=== PATIENT | female | born 1965 | race Caucasian/White ===

== ENCOUNTER 2017-09-17 08:46 | Outpatient (CLI) | payer BC ==
--- NOTE | 2017-09-17 12:06 | MMO ---
BILATERAL SCREENING MAMMOGRAM: HISTORY: Annual screening study. History of a benign left breast biopsy. COMPARISON: 11/21/2016, 10/18/2015, 10/12/2014, 10/07/2013, 10/09/2012 FINDINGS: The films are reviewed with the assistance of computer aided detection. Scattered fibroglandular change of both breasts is present. Post biopsy changes of the upper outer l eft breast are stable. Calcifications in both breasts are also unchanged. IMPRESSION: BI-RADS Category 2: Benign findings. POS: RACHELLE
== END 2017-09-17 08:47 | disposition home or self-care (01) ==
LOC: SCSMAMMO 08:46
PROVIDERS: ATTEND Family Medicine
DX: Z12.31 Encounter for screening mammogram for malignant neoplasm of breast (principal)
CPT/HCPCS: 77067

== ENCOUNTER 2018-01-17 06:56 | Day surgery (SDC) | payer BC ==
[2018-01-16 08:31] VITALS: BMI 30.8
--- NOTE | 2018-01-17 04:29 | HP ---
SHORT STAY HISTORY AND PHYSICAL DATE OF ADMISSION: 01/17/2018 HISTORY OF PRESENT ILLNESS: This is a 52-year-old -[place] female who comes for a colonoscop y for colon cancer screening. The patient has no specific GI symptoms. Her bowel movements are regu lar. No history of abdominal pain, no rectal bleeding. ALLERGIES: None. SOCIAL HISTORY: The patient does not smoke or drink alcohol. MEDICAL ILLNESSES: 1. Iatrogenic hypothyroidism. 2. Thyroidectomy for Graves' disease. 3. Uterine fibroids. 4. . 5. Breast biopsy. PHYSICAL EXAMINATION: VITAL SIGNS: Pulse is 70, blood pressure 130/80. HEENT: Conjunctivae clear. CARDIOVASCULAR SYSTEM: First and second heart sounds normal. LUNGS: Clear to auscultation. ABDOMEN: Soft to palpate. No organomegaly. No tenderness. No masses. ADMITTING DIAGNOSIS: A 52-year-old female, comes for a colonoscopy for colon cancer screening.
[2018-01-17] MEDS ORDERED: PROPOFOL 200 MG/20 ML VIAL ONE (10:21)
--- NOTE | 2018-01-17 11:39 | OP ---
DATE OF SURGERY: 01/17/2018 SURGEON: Drake Neely M.D. OPERATIVE PROCEDURE: Colonoscopy. PREOPERATIVE DIAGNOSIS: A 52-year-old female undergoing colonoscopy for colon cance r screening. POSTOPERATIVE DIAGNOSES: Normal colonoscopy except for hemorrhoids. PROCEDURE: The patient was placed on her left lateral position and was given sedation by Anesthesia Department. The rectal exam was done before the scope was advanced into the rectum. No lesion felt on rectal exam. A [employer]ax video colonoscope was introduced into the rectum and advanced all the way t o the cecum. The prep was good. The mucosa appears normal throughout the colon with normal vascular pattern. The appendiceal orifice, ileocecal valve, cecum, no pathology seen. Withdrawal from the c ecum and ascending colon, hepatic flexure, no pathology seen. The transverse colon, splenic flexure, descending colon, sigmoid colon, no pathology seen. Retroflexion of scope in the rectum showed hemo rrhoids. DISCHARGE PLANNING: This 52-year-old female who came for a colonoscopy for colon ca ncer screening. She underwent colonoscopy and was found to have hemorrhoids. DISCHARGE INSTRUCTIONS: 1. The patient to call me if she develops abdominal pain or hematochezia. 2. Repeat colonoscopy in 10 years.
== END 2018-01-17 11:14 | disposition home or self-care (01) ==
LOC: SDC 06:56
PROVIDERS: ATTEND Internal Medicine Gastroenterology
PROC: 0DJD8ZZ Inspection of Lower Intestinal Tract, Via Natural or Artificial Opening Endoscopic (ICD-10-PCS; principal; 2018-01-17)
DX: Z12.11 Encounter for screening for malignant neoplasm of colon (principal); E03.9 Hypothyroidism, unspecified; Z79.899 Other long term (current) drug therapy
CPT/HCPCS: J2704

== ENCOUNTER 2018-09-19 09:51 | Outpatient (CLI) | payer BC ==
--- NOTE | 2018-09-19 10:51 | MMO ---
Bilateral MAMMO Bilat Screen [facility]. CLINICAL HISTORY: Patient is 53 years old and is seen for screening. The patient has the following family history of breast cancer: maternal grandmother, malignant (generic). The patient has no personal history of cancer. The patient has a history of left needle biopsy more than 10 years ago - benign. VIEWS: The views performed were: bilateral craniocaudal and bilateral mediolateral oblique. FILMS COMPARED: The present examination has been compared to prior imaging studies performed at [facility] on 10/12/2014, 10/18/2015 and 09/17/2017, and at [facility] on 11/21/2016. This study has been interpreted with the assistance of computer-aided detection. MAMMOGRAM FINDINGS: There are scattered fibroglandular densities. There are no suspicious masses, suspicious calcifications, or new areas of architectural distortion. IMPRESSION: THERE IS NO MAMMOGRAPHIC EVIDENCE OF MALIGNANCY. A ROUTINE FOLLOW-UP MAMMOGRAM IN 1 YEAR IS RECOMMENDED. ACR BI-RADS Category 1 - Negative MAMMOGRAPHY NOTE: 1. A negative mammogram report should not delay a biopsy if a dominant of clinically suspicious mass is present. 2. Approximately 10% to 15% of breast cancers are not detected by mammography. 3. Adenosis and dense breasts may obscure an underlying neoplasm.
== END 2018-09-19 09:52 | disposition home or self-care (01) ==
LOC: SCSMAMMO 09:51
PROVIDERS: ATTEND Family Medicine
DX: Z12.31 Encounter for screening mammogram for malignant neoplasm of breast (principal); Z80.3 Family history of malignant neoplasm of breast
CPT/HCPCS: 77067